=== PATIENT | female | born 1970 | race Caucasian/White ===

== ENCOUNTER 2016-12-16 12:57 | Outpatient (CLI) | payer OTHER | END 2016-12-16 12:58 | disposition home or self-care (01) | DX: S52.572K Other intraarticular fracture of lower end of left radius, subsequent encounter for closed fracture with nonunion (principal); M18.12 Unilateral primary osteoarthritis of first carpometacarpal joint, left hand; M19.032 Primary osteoarthritis, left wrist; M19.042 Primary osteoarthritis, left hand; Z98.890 Other specified postprocedural states; S52.612K Displaced fracture of left ulna styloid process, subsequent encounter for closed fracture with nonunion ==

== ENCOUNTER 2020-03-29 07:14 | Outpatient (CLI) | payer OTHER ==
--- NOTE | 2020-03-29 09:42 | MRI Report ---
PROCEDURE: Knee RT W/O INDICATIONS: RT KNEE PAIN TECHNIQUE: Noncontrast sagittal PD fast spin echo and T2 fast spin echo with fat saturation, sagittal 3-D gradie nt sequence with fat saturation; coronal T1 spin echo and PD fast spin echo with fat saturation, and axial PD fast spin echo with fat saturation through the knee. COMPARISON: None. FINDINGS: Image quality: Excellent. Menisci: There is subtle irregularity at the undersurface of the posterior horn of the medial menisc us with a probable linear component that most likely represents a horizontal oblique tear extending t o the middle third of the tibial articular surface. The lateral meniscus demonstrates normal morpholo gy and internal signal. The meniscal root ligaments appear intact. Cruciate ligaments: The anterior and posterior cruciate ligaments appear intact. Medial structures: The medial collateral ligament appears intact. Visualized portions of the pes an serinus tendons appear normal. No abnormal bursal fluid. Lateral structures: The lateral collateral ligament, long and short heads of the biceps femoris tend on appear intact. The popliteus tendon appears normal. Iliotibial band appears normal. Anterior structures: The quadriceps and patellar tendons appear intact. Patellar alignment is zeinab l. No femoral trochlear dysplasia or ventral trochlear prominence. No edema in the infrapatellar fa t pad. Bones and cartilage: Mild edema is noted in the superior portion of the central patella that may be related to overlying cartilage loss versus a direct contusion or less likely traction from the distal quadriceps tendon insertion. The distal quadriceps tendon appears intact. The patellar tendon is int act. A focal full-thickness cartilage defect is seen in the median ridge of the patella with adjacent cartilage delamination measuring up to 5 x 5 mm. No bone marrow contusions or fractures. The cartil age of the medial and lateral femorotibial compartments appears normal in thickness. Joint space: There is physiologic knee joint fluid. A trace medial popliteal cyst is present. Zeinab l appearing synovial plicae are incidentally noted. IMPRESSION: 1. Full-thickness cartilage defect in the median ridge of the patella measures up to 5 x 5 mm. 2. Edema in the superior aspect of the central patella is most likely related to overlying cartilage loss versus secondary to a direct contusion injury. 3. Probable subtle horizontal oblique tear in the posterior horn of the medial meniscus extending to the middle third of the tibial articular surface. Reviewed by: Garrett Lizarraga MD on 03/29/2020 9:41 AM PDT Approved by: Garrett Lizarraga MD on 03/29/2020 9:41 AM PDT Station ID: [id number]
== END 2020-03-29 07:15 | disposition home or self-care (01) ==
LOC: DI 07:14
PROVIDERS: ATTEND Family Medicine
DX: M25.561 Pain in right knee (principal); M22.8X1 Other disorders of patella, right knee

== ENCOUNTER 2024-01-11 14:08 | Outpatient (CLI) | payer OTHER ==
--- NOTE | 2024-01-11 14:55 | Sleep Patient Instructions ---
Sleep Center Visit Summary - Patient Visit Information Reason for Visit: Initial consultation - Patient Instructions Additional Instructions: You will continue with CPAP therapy with pressure changed to 10-14 cmH2O. A supply prescription will be updated with your DME. I have added an order to update your PAP machine. Please call the office to schedule a compliance follow up once you get your new device. These will be done once I have a copy of your last sleep study. We encourage you to continue to try to lose weight. Please follow up with the sleep care office one month after obtaining new device. - Clinic Information Contact: [facility] [address] [place] [address] [email or web address] T: [phone]
[2024-01-11 14:57] VITALS: BP 152/92; O2SAT 97
--- NOTE | 2024-01-11 14:57 | SLEEP CARE CONSULTATION ---
Information from patient questionnaire entered by Ephraim Friedman. I have reviewed and concur with the information entered by Ephraim Friedman. This document represents the service I personally performed and the decisions made by me, Anita Nuno ARNP. History of Present Illness Service Date and Time: 01/11/2024 1408 Reason for Visit: New patient, Previously diagnosed sleep apnea, sleep apnea on CPAP therapy Chief Complaint: reports: Other (establish care) Date of Onset: 2009 Usual bedtime: 1386-0381 Time it takes to fall asleep: NOT SURE Snores at night: Yes Observed to quit breathing while asleep: Yes Sleeps alone due to snoring: No Number of times waking at night: 2-3 Reasons for waking at night: reports: Pain, Bathroom Toss, Turn, or Twitch while sleeping: Yes Recalls having dreams: Yes Usually gets out of bed at: [id number] Feels refreshed in the morning: Yes Morning headache: Yes Sleepy or fatigued during the day: Yes Ever fallen asleep while driving: Yes Takes day naps: No Prior sleep studies: Yes Additional HPI information: DENITA ADORNO was previously diagnosed to have unknown, AHI unknown, obstructive sleep apnea-hypopnea syndrome and comes in today to establish care for CPAP therapy. - Parasomnia Symptoms Ever been unable to move upon waking from sleep: Yes Walks in sleep: No Talks in sleep: Yes Ever felt weak in the knees when startled or emotional: No Bothered by creepy, crawly, restless sensations in legs: No Problems with memory or concentration: Yes CPAP Compliance Data - Data Reviewed with Patient Average duration of nightly device use: 7 hours 31 minutes Compliance rate %: 4 (10/14/19-01/11/24; days used) Current pressure setting (cmH2O): 8-12 Average residual AHI: 4.2 Central apnea: 1.4 Obstructive apnea: 2.1 Hypopnea: 0.6 Average large leak: 0 L/min Compliance data discussion: She has a [employer] Airsense 10 Autoset for Her that was set up in 09/2017. She is not getting supplies, last DME was [employer]. She is using a Respironics Dreamwear full face mask, small cushion. Subjective Missed days of use due to: reports: mask issues Patient concerns: reports: mask discomfort (not comforatble, dislodging), air blowing in eyes, mask leak noise. denies: aerophagia, condensation in mask/hose, nasal congestion, dry mouth, nose, throat, epistaxis Observed to snore while using device: No Current pressure setting perceived as: comfortable (to too low) On therapy, patient: reports: sleeping better, awakening more refreshed, being more awake and alert during the day, more rested overall. 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 Patient is and lives in [place]. Have you smoked in the past 12 months: No Alcohol use: Yes Alcohol amount and frequency: 1-2 EVERY MONTH Caffeine use: Yes Caffeine amount and frequency: 1-2 JUST IN THE MORNING QD Family History Family history of sleep disordered breathing: Yes Family Hx Sleep Apnea: Father: Snoring Allergies and Home Medications Known drug allergies: Yes (as listed) Drug allergies reviewed: Yes Home medication list reviewed: Yes (as listed) Allergy and home medication list: Allergies ketorolac tromethamine * [From Toradol] Allergy (Verified 01/09/24 13:05) Emesis latex Allergy (Verified 01/09/24 13:05) Rash Sulfa (Sulfonamide Antibiotics) Allergy (Verified 01/09/24 13:05) Rash Home Medications Medication Instructions Recorded Confirmed Last Taken Type Levothyroxine [Synthroid] 75 mcg PO DAILY 04/01/16 01/11/24 04/06/16 History DULoxetine [Cymbalta] See Rx Instructions .ROUTE .COMPLEX 01/11/24 01/11/24 Unknown History Review of Systems Weight gain over past 5 years: 25-30 in last couple years Cardiovascular: denies: high blood pressure Gastrointestinal: denies: heartburn Neurological: reports: headaches, gait or balance problems Psychiatric: reports: anxiety Ear/Nose/Throat: reports: hoarseness, tonsillectomy Endocrine: reports: thyroid disease, sluggishness, too hot or cold, excessive thirst Musculoskeletal: reports: joint pain, neck pain, back pain, joint swelling, muscle pain or cramping, mobility problems Immunologic: reports: sneezing, itching, allergies to food or environment Physical Exam Vital signs obtained and entered by: EPHRAIM Lezama MA Blood Pressure: 152/92 (LEFT ARM) Cuff size: regular Heart Rate: 98 O2 Saturation: 97 Height: 5 ft 2 in Weight: 202 lb 9.6 oz Body Mass Index: 37.0 BMI Classification: Obese Neck circumference: 14.5 Mouth and throat: narrow oropharynx Soft palate: long Hard palate: normal Uvula: normal Uvula visualization: 25% Mallampati Class III Tongue: enlarged in size with teeth salazar on lateral edges Tonsils: absent bilaterally Neck: normal w/o lymphadenopathy or thyromegaly Heart: regular rate and rhythm Lungs: clear bilaterally Impression and Plan 1. Obstructive Sleep Apnea-Hypopnea Syndrome, unknown, with fair treatment compliance and good apnea control. On CPAP therapy, the patient has better sleep quality and is more rested overall. She wants to use her CPAP but the mask she has is just not working for her. Her last CPAP was updated in 2018. The patients CPAP is over 5 years old and of reasonable use. Thus, the CPAP will be updated. A DWO prescription will be made. Compliance guidelines for new device and follow up discussed. I will send off the new DME order once I have a copy of her last sleep study. If unable to obtain the sleep study, then another sleep study will be ordered and completed. Patient's apnea severity and rationale for treatment to reduce apnea, improve sleep quality and reduce cardiovascular and cerebrovascular events was reviewed. 2. Obesity, unspecified. Currently patients BMI is 37. Obesity increases the risk of apnea, CPAP pressure requirements and overall health risks especially cardiovascular and diabetes. Thus patient is advised to lose weight. * Change auto CPAP pressure to 10-14 cmH2O * Update machine * Update supply prescription * Notify me if snoring with mask or feeling that the pressure is too much or too little * Attempt to lose weight * Call this office if any problems using CPAP * Return for follow up in one month after obtaining new CPAP, or sooner if concerns arise Counseling Topics: Spare mask, Weight loss health impact Prescriptions: Auto CPAP, Device supplies Visit Type: In Office Time Spent with Patient (minutes): 30 Provider Statement: I spent 100% of the Face to Face Visit with the patient with greater than 50% spent counseling the patient and coordination of care.
== END 2024-01-11 14:09 | disposition home or self-care (01) ==
LOC: SC 14:08
PROVIDERS: ATTEND Nurse Practitioner Family
DX: G47.33 Obstructive sleep apnea (adult) (pediatric) (principal); E66.9 Obesity, unspecified; Z68.37 Body mass index [BMI] 37.0-37.9, adult
CPT/HCPCS: 99203; 99212